=== PATIENT | female | born 1935 | race Caucasian/White ===

== ENCOUNTER 2018-01-26 15:09 | Emergency (ER) | payer OTHER, MEDICARE ==
[~2018-01-26] VITALS: Ht 162.6 cm; Wt 59.0 kg
[~2018-01-26 15:09] MED LIST: NORCO 5-325 TA1 EACH PO
--- NOTE | 2018-01-26 16:45 | RADIOLOGY REPORT ---
EXAMINATION: XR KNEE, LEFT CLINICAL INFORMATION: Knee pain after a fall. COMPARISON: None TECHNIQUE: Four views of the left knee. FINDINGS: There is no fracture. There is no dislocation. There is no joint effusion. There is small spurs of the medial and lateral tibial spine. There is a popcorn like calcification measuring 5 mm at the anterior knee joint consistent with an intra-articular loose body. IMPRESSION: 1. No acute abnormality. 2. Mild degenerative change of the knee. 3. 5 mm intra-articular loose body.
--- NOTE | 2018-01-26 16:48 | RADIOLOGY REPORT ---
EXAMINATION: XR KNEE, RIGHT CLINICAL INFORMATION: Knee pain. Fall. COMPARISON: None TECHNIQUE: Four views of the right knee. FINDINGS: There is no fracture. There is no dislocation. There is no joint effusion. There is mild joint narrowing of the medial femoral tibial joint. There is a prominent spur at the posterior medial tibia IMPRESSION: 1. No acute abnormality. 2. Degenerative change of the knee joint.
--- NOTE | 2018-01-26 16:53 | ED MVC/FALL/TRAUMA COMPLAINT ---
History of Present Illness General Chief Complaint: Fall Stated Complaint: MECHANICAL FALL HIT HEAD ON FLOOR Source: patient Exam Limitations: no limitations Vital Signs & Intake/Output Vital Signs & Intake/Output Vital Signs Date Time Temp Pulse Resp B/P B/P Pulse O2 O2 Flow FiO2 Mean Ox Delivery Rate 01/26 1535 97.2 81 20 190/84 97 Room Air Allergies Coded Allergies: NO KNOWN ALLERGIES (09/28/15) Reconcile Medications Hydrocodone/Acetaminophen ([place] 5-325 Tablet) 1 EACH TABLET 1 TAB PO Q6P PRN PAIN Triage Note: PT HERRE WITH C/O OF FALLIN TODAY AT STORE. PT REPORTS SHE WAS WALKING AND HER SHOES GOT STUCK AND SHE FELLFORWARD, STRIKING HER HEAD, LIP AND BILATERAL KNEES. PT WITH SMALL LIP ABRASION NOTED, NO BLEEDING AND RED REAVES TO KNEE, +ROM+CMS. Triage Nurses Notes Reviewed? yes Onset: Abrupt Duration: hour(s): (2), constant Timing: single episode today Severity: moderate, severe Severity Numbers: 7 Injuries/Fall Location: head, face, neck Method of Injury: fall Loss of Consciousness: no loss of consciousness HPI: 82-year-old female past medical history of hypertension hyperlipidemia presents for evaluation after fall. Patient reports she was in a store when she tripped and fell hitting her head and face on the ground. She reports pain in the left jaw and left bridge of the nose. She also reports a abrasion to her left upper lip. She denies any loss of consciousness. She does report some left-sided neck pain. She also reports that she landed on her bilateral knees and has some knee pain. No other injuries. She feels like her teeth are lining up. Denies any changes in her vision eye pain vomiting chest pain shortness of breath abdominal pain or hip pain. She was able to get up and has been walking since the fall. She is not on any blood thinners. (Wayne Owens) Past History Travel History Traveled to [place] past 21 day No Medical History Any Pertinent Medical History? 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 No (Wayne Owens) Review of Systems Review of Systems Constitutional: Reports: no symptoms. Eyes: Reports: no symptoms. Ears, Nose, Throat, Mouth: Reports: nose pain. Respiratory: Reports: no symptoms. Cardiovascular: Reports: no symptoms. Gastrointestinal/Abdominal: Reports: no symptoms. Genitourinary: Reports: no symptoms. Musculoskeletal: Reports: joint pain, muscle pain, muscle stiffness. Skin: Reports: no symptoms. Neurological/Psychological: Reports: no symptoms. All Other Systems: Reviewed and Negative (Wayne Owens) Physical Exam Physical Exam General Appearance: well developed/nourished, no apparent distress, alert, awake Head: there is soft tissue swelling to the left brudge of the nose and left maxillary area. no scalp hematoma or abrasions. no jackson signs of raccoon eyes. full rom of the mandible. no periorbital tenderness. Eyes: Bilateral: normal appearance, PERRL, EOMI, normal inspection. Ears, Nose, Throat, Mouth: hearing grossly normal, Tympanic normal, no septal hematoma or epistaxis Neck: normal inspection, supple, full range of motion, paraspinous muscle tender (left side, no brusing or abras), no midline tenderness Respiratory: normal breath sounds, chest non-tender, no respiratory distress, lungs clear Cardiovascular: regular rate/rhythm, normal peripheral pulses Peripheral Pulses: 2+ radial (R), 2+ radial (L) Gastrointestinal: soft, non-tender Back: normal inspection, normal range of motion, no vertebral tenderness Extremities: normal range of motion, superfical abrasion over the bilateral patella. no swelling or brusing. pt is able to walk and bearing weight. Neurologic/Psych: no motor/sensory deficits, awake, alert, oriented x 3, normal gait, normal mood/affect Skin: intact, normal color, warm/dry Core Measures ACS in differential dx? No CVA/TIA Diagnosis No Sepsis Present: No Sepsis Focused Exam Completed? No (Wayne Owens) Progress Differential Diagnosis: C/T/L spine injury, ext injury, ICH, pelvis injury, spinal cord injury, fracture contusion strain Plan of Care: Orders Procedure Date/time Status CT HEAD WO IV CONTRAST 09/[address] MAXILLOFACIAL W/O CON 01/[address] CERV SPINE WO IV CONTRAST 01/27 1536 Active Patient is here for evaluation after a fall. She reports head strike and hitting her face and bilateral knees on the ground. No loss of consciousness no blood thinners. She is neurologically intact. CT scans of the head maxillofacial area and cervical spine obtained. Also x-rays of the bilateral knees obtained. CT scans of the maxillofacial area show a nasal bone fracture. There is no septal hematoma on exam. No epistaxis. No other signs of trauma on imaging. Patient has a steady gait. She was instructed to rest apply ice Tylenol for pain follow-up with ENT. Discussed return precautions in detail Case discussed with Dr. Clark he agrees Diagnostic Imaging: Viewed by Me: Radiology Read, CT Scan. Discussed w/RAD: Radiology Read, CT Scan. Radiology Impression: PATIENT: CALIXTO MONTALVO PRESENT AGE: 82 PATIENT ACCOUNT NO: [id number] : 37 LOCATION: [facility] ORDERING PHYSICIAN: Wayne FARNSWORTH SERVICE DATE: 01/26/18 EXAM TYPE: RAD - XRY- KNEE COMPLETE RIGHT EXAMINATION: XR KNEE, RIGHT CLINICAL INFORMATION: Knee pain. Fall. COMPARISON: None TECHNIQUE: Four views of the right knee. FINDINGS: There is no fracture. There is no dislocation. There is no joint effusion. There is mild joint narrowing of the medial femoral tibial joint. There is a prominent spur at the posterior medial tibia IMPRESSION: 1. No acute abnormality. 2. Degenerative change of the knee joint. DICTATED BY: Jeramie Roberts MD DATE/TIME DICTATED:01/26/181641 FELLMONGERING MACHINE OPERATOR:AYAAN DATE/TIME TRANSCRIBED:1641 CONFIDENTIAL, DO NOT COPY WITHOUT APPROPRIATE AUTHORIZATION., PATIENT: CALIXTO MONTALVO PRESENT AGE: 82 PATIENT ACCOUNT NO: [id number] : 37 LOCATION: [facility] ORDERING PHYSICIAN: Wayne FARNSWORTH SERVICE DATE: 01/26/18 EXAM TYPE: RAD - XRY-KNEE COMPLETE LEFT EXAMINATION: XR KNEE, LEFT CLINICAL INFORMATION: Knee pain after a fall. COMPARISON: None TECHNIQUE: Four views of the left knee. FINDINGS: There is no fracture. There is no dislocation. There is no joint effusion. There is small spurs of the medial and lateral tibial spine. There is a popcorn like calcification measuring 5 mm at the anterior knee joint consistent with an intra-articular loose body. IMPRESSION: 1. No acute abnormality. 2. Mild degenerative change of the knee. 3. 5 mm intra-articular loose body. DICTATED BY: Jeramie Roberts MD DATE/TIME DICTATED :01/26/181638 FELLMONGERING MACHINE OPERATOR:AYAAN DATE/TIME TRANSCRIBED:01/26/181638 CONFIDENTIAL, DO NOT COPY WITHOUT APPROPRIATE AUTHORIZATION. < Electronically signed in Other Vendor System> SIGNED BY: Jeramie Roberts MD [id number], PATIENT: CALIXTO MONTALVO PRESENT AGE: 82 PATIENT ACCOUNT NO: [id number] : 37 LOCATION: [facility] ORDERING PHYSICIAN: Wayne FARNSWORTH SERVICE DATE: 01/26/18 EXAM TYPE: CAT - CT CERV SPINE WO IV CONTRAST; CT HEAD WO IV CONTRAST; CT MAXILLOFACIAL W/O CON EXAMINATION: CT HEAD, FACE, AND CERVICAL SPINE CLINICAL INFORMATION: Trauma. Fall. Head strike. Head and neck pain after fall. COMPARISON: Cervical spine radiographs 2015. CT head 09/21/2015. TECHNIQUE: Adult School Teacher images were obtained. CT acquisition of the head, face, and cervical spine was performed without contrast. Data was reformatted into multiplanar images at the acquisition workstation. DLP: 1202.31 mGy-cm. FINDINGS: Head: There are numerous ill-defined foci of hypoattenuation within the periventricular white matter that appear grossly unchanged when compared to the CT scan of the head from 09/21/2015. Hayes-white matter differentiation is otherwise grossly preserved and there is no evidence of acute territorial infarct. No acute hemorrhage or abnormal extra-axial collection. No intracranial mass effect or midline shift. Lateral and third ventricles are proportionate to the subarachnoid spaces. No hydrocephalus. The calvarium and skull base are intact. No mastoid or middle ear effusion. Face: There is acute fracture of the nasal bones with leftward displacement an angulation of the bone fragments. There is a tiny amount of subcutaneous gas adjacent to the fracture related to trauma. No evidence of an acute nasal septal hematoma. The zygomatic arches, pterygoid processes, and the mandible are intact. No temporomandibular joint dislocation. Of note there is a retention cyst within the alveolar recess left maxillary sinus anterior mucosal thickening within the alveolar recess of the right maxillary sinus. The remainder of the paranasal sinuses are well- aerated and the major paranasal sinus drainage pathways are patent. Incidentally there is an impacted horizontally oriented tooth within the left maxillary alveolar ridge. Drusen is noted. Globes and extraocular muscles are symmetric. There is no retrobulbar mass or inflammation. Lamina papyracea and orbital floors are intact. Cervical spine: There is near-anatomic alignment and position of the vertebral bodies and posterior elements of the cervical spine in the sagittal dimension. Vertebral body heights are preserved. There is no acute fracture. No abnormal prevertebral soft tissue swelling. There is slight loss of intervertebral disc height with associated sclerotic degenerative endplate changes at C5-C6. Mild degenerative arthrosis of the atlantodental joint is also noted. There is arthrosis of the articular facet joints at multiple levels within the cervical spine. There is at least mild canal stenosis at the level of C5-C6. Otherwise no evidence of canal compromise. Visualized lung apices are clear. There are multiple small cysts and/or nodules within the right and left lobes of the thyroid gland. Heavily calcified atheromatous plaque involves both carotid bifurcations. Grossly no pathologically enlarged cervical lymph nodes. IMPRESSION: There is an acute fracture of the nasal bones with a leftward displacement and angulation of the bone fragments. Otherwise no acute finding. No acute intracranial hemorrhage. No acute cervical spine fracture. There are scattered chronic small vessel ischemic changes within the periventricular white matter that appear largely unchanged when compared to the CT scan of the head from 09/21/2015. Multilevel degenerative spondylosis of the cervical spine that appears greatest at C5-C6. DICTATED BY: Alida MACKEY,Neto Arguello DATE/TIME DICTATED :01/26/181643 FELLMONGERING MACHINE OPERATOR:AYAAN DATE/TIME TRANSCRIBED:01/26/181643 CONFIDENTIAL, DO NOT COPY WITHOUT APPROPRIATE AUTHORIZATION. (Wayne Owens) Departure Departure Disposition: HOME OR SELF CARE Condition: Stable Clinical Impression Primary Impression: Fall Qualifiers: Encounter type: initial encounter Qualified Code: W19.XXXA - Unspecified fall, initial encounter Referrals: Riky MACKEY,Kathleen Patel DO (PCP/Family) Additional Instructions: Rest, avoid excessive physical activity heavy lifting or bending. Apply ice for 15-20 minutes every few hours. Tylenol 1000 mg every 6 hours as needed for pain. Make a follow-up with your primary care doctor and provided ear nose and throat doctor as soon as possible. Monitor your symptoms return with any concerns. Departure Forms: Customer Survey General Discharge Information (Wayne Owens) PA/COMMUNICATIONS CLERK Co-Sign Statement Statement: ED Attending supervision documentation- [x] I saw and evaluated the patient. I have also reviewed all the pertinent lab results and diagnostic results. I agree with the findings and the plan of care as documented in the PA's/COMMUNICATIONS CLERK's documentation. Patient presents for evaluation status post mechanical fall prior to arrival. Physical examination reveals a mild deformity of the nose without overlying soft tissue swelling (patient broke her nose roughly 1 year ago). [] I have reviewed the ED Record and agree with the PA's/COMMUNICATIONS CLERK's documentation. [] Additions or exceptions (if any) to the PAs/COMMUNICATIONS CLERK's note and plan are summarized below: [] (Amber MACKEY,Ponce Mahan) ED Attending Observation Initial Observation Note: I have seen and personally examined CALIXTO MONTALVO on 01/29/18 at 1417. I agree with the current emergency department documentation. The disposition (admission or discharge) is uncertain at this time, she needs a period of observation for the following reason(s): The ED Nurse caring for this patient has been personally informed as to what the patient is being observed for. (Wayne Owens)
--- NOTE | 2018-01-26 17:05 | CT SCAN REPORT ---
EXAMINATION: CT HEAD, FACE, AND CERVICAL SPINE CLINICAL INFORMATION: Trauma. Fall. Head strike. Head and neck pain after fall. COMPARISON: Cervical spine radiographs 09/21/2015. CT head 09/21/2015. TECHNIQUE: Civil Manager images were obtained. CT acquisition of the head, face, and cervical spine was performed without contrast. Data was reformatted into multiplanar images at the acquisition workstation. DLP: 1202.31 mGy-cm. FINDINGS: Head: There are numerous ill-defined foci of hypoattenuation within the periventricular white matter that appear grossly unchanged when compared to the CT scan of the head from 09/21/2015. Hayes-white matter differentiation is otherwise grossly preserved and there is no evidence of acute territorial infarct. No acute hemorrhage or abnormal extra-axial collection. No intracranial mass effect or midline shift. Lateral and third ventricles are proportionate to the subarachnoid spaces. No hydrocephalus. The calvarium and skull base are intact. No mastoid or middle ear effusion. Face: There is acute fracture of the nasal bones with leftward displacement an angulation of the bone fragments. There is a tiny amount of subcutaneous gas adjacent to the fracture related to trauma. No evidence of an acute nasal septal hematoma. The zygomatic arches, pterygoid processes, and the mandible are intact. No temporomandibular joint dislocation. Of note there is a retention cyst within the alveolar recess left maxillary sinus anterior mucosal thickening within the alveolar recess of the right maxillary sinus. The remainder of the paranasal sinuses are well-aerated and the major paranasal sinus drainage pathways are patent. Incidentally there is an impacted horizontally oriented tooth within the left maxillary alveolar ridge. Drusen is noted. Globes and extraocular muscles are symmetric. There is no retrobulbar mass or inflammation. Lamina papyracea and orbital floors are intact. Cervical spine: There is near-anatomic alignment and position of the vertebral bodies and posterior elements of the cervical spine in the sagittal dimension. Vertebral body heights are preserved. There is no acute fracture. No abnormal prevertebral soft tissue swelling. There is slight loss of intervertebral disc height with associated sclerotic degenerative endplate changes at C5-C6. Mild degenerative arthrosis of the atlantodental joint is also noted. There is arthrosis of the articular facet joints at multiple levels within the cervical spine. There is at least mild canal stenosis at the level of C5-C6. Otherwise no evidence of canal compromise. Visualized lung apices are clear. There are multiple small cysts and/or nodules within the right and left lobes of the thyroid gland. Heavily calcified atheromatous plaque involves both carotid bifurcations. Grossly no pathologically enlarged cervical lymph nodes. IMPRESSION: There is an acute fracture of the nasal bones with a leftward displacement and angulation of the bone fragments. Otherwise no acute finding. No acute intracranial hemorrhage. No acute cervical spine fracture. There are scattered chronic small vessel ischemic changes within the periventricular white matter that appear largely unchanged when compared to the CT scan of the head from 09/21/2015. Multilevel degenerative spondylosis of the cervical spine that appears greatest at C5-C6.
[2018-01-26 17:45] VITALS: BP 187/79
== END 2018-01-26 17:52 ==
LOC: ERH 15:09
DX: S09.90XA Unspecified injury of head, initial encounter (principal); W19.XXXA Unspecified fall, initial encounter; Y92.512 Supermarket, store or market as the place of occurrence of the external cause; Y92.9 Unspecified place or not applicable; Y93.9 Activity, unspecified; I10 Essential (primary) hypertension; E78.5 Hyperlipidemia, unspecified
CPT/HCPCS: 73562-LT; 73562-RT; 90471; 90714